=== PATIENT | female | born 1995 | race Caucasian/White ===

== ENCOUNTER 2016-08-15 00:24 | Emergency (ER) | payer BC ==
[~2016-08-15] VITALS: Ht 160 cm; Wt 50.2 kg
[2016-08-15 00:31] VITALS: TEMP 36.8; Ht 160 cm; Wt 50.2 kg
[2016-08-15 01:16] VITALS: BP 107/68; PULSE 79; O2SAT 97
--- NOTE | 2016-08-15 06:15 | EMERGENCY ROOM VISIT NOTE ---
ED Visit Note First contact with patient: 00:37 CHIEF COMPLAINT: Thumb injury HISTORY OF PRESENT ILLNESS: This 21 yo patient presents to the emergency department after injuring the left thumb when she accidentally dropped some plates on it tonight at home. The patient rates the pain as throbbing and 5/10. The range of motion of the thumb is intact. No numbness or tingling. No lacerations. No other injuries. The patient has not had previous injury to this thumb. The patient has taken nothing for the pain. REVIEW OF SYSTEMS: A 6 system review of systems was completed with positives and pertinent negatives in the HPI. ALLERGIES: None MEDICATIONS: None PMH: Appendectomy SOCIAL HISTORY: No drug use PHYSICAL EXAM: Vital Signs: Reviewed Nurse's notes, vital signs stable. GENERAL : Pleasant female, in no acute distress, but appears to be in pain, well- developed, well-nourished. MUSCULOSKELETAL: There is no deformity of the left thumb. Range of motion of the thumb is intact. The PP joint is maximally tender to palpation. There is no ligamentous instability. There is no laceration. Capillary refill less than 2 seconds. No tenderness of the remaining fingers or hand. Full range of motion of the wrist. + snuffbox tenderness. Radial pulse 2 +. NEURO: Alert and oriented to person, place, and time. Normal sensation to light and sharp touch. EMERGENCY DEPARTMENT COURSE: I examined the patient. An x-ray of the left wrist and thumb was reviewed by myself and my attending and showed no fracture. The thumb was immobiziled by thumb spica under my direction and the position was satisfactory. Neurovascular status rechecked and intact.Patient was advised to follow-up with hand specialist in a week if symptoms persist or here in the ER sooner for severe pain, numbness, tingling, worsening signs or symptoms or as needed. The patient was discharged home in good condition. DIAGNOSIS: Left thumb sprain DISCHARGE INSTRUCTIONS: As below Allergies Coded Allergies: No Known Allergies (Unverified , 08/15/16) Vital Signs Date Time Temp Pulse Resp B/P Pulse Ox O2 Delivery O2 Flow Rate FiO2 08/15/16 01:16 79 20 107/68 97 08/15/16 00:31 36.8 95 16 128/80 98 Room Air Departure Information Impression Primary Impression: Left thumb sprain Dispostion Home / Self-Care Condition GOOD Referrals Sea Connolly MD Forms WORK / SCHOOL INSTRUCTIONS, HOME CARE DOCUMENTATION FORM, IMPORTANT VISIT INFORMATION Patient Instructions My [facility] Additional Instructions Ibuprofen(Motrin, Advil) may be used for fever or pain. Use 600mg every six hours as needed. Take with food. Avoid using more than 2400mg in a 24 hour period. Do not use 2400mg per day for more than three consecutive days without physician direction. Prolonged inappropriate use can lead to stomach upset or ulcers. This medication can be taken if you need to drive, work, or perform activities which may be dangerous when taking narcotic pain medication. (AND/OR) Acetaminophen(Tylenol) may be used for fever or pain. Use 1000mg every six hours as needed. Avoid using more than 3000mg in a 24 hour period. This medication can be taken if you need to drive, work, or perform activities which may be dangerous when taking narcotic pain medication. Ice compresses for 20 minutes at a time four times daily for 2-3 days. Rest and elevate your injury. Wear splint for comfort. Do not have it so tight that you cannot feel your fingers. Continue current medications. Return to the ER immediately for any numbness, tingling, severe pain, extreme swelling in the extremity or as needed. Call Orthopedics in 5-7 days if symptoms persist to arrange follow up for your injury.
--- NOTE | 2016-08-15 06:49 | DIAGNOSTIC IMAGING REPORT ---
LEFT WRIST W/NAVICULAR MIN 3 VIEWS CLINICAL HISTORY: Left wrist pain status post injury. COMPARISON: None FINDINGS: Alignment of the left wrist is anatomic. Scaphoid is intact. No acute fracture is identified. IMPRESSION: No acute fracture or dislocation of the left wrist. Electronically signed by: Francois Baptiste M.D. 08/15/2016 6:48 AM Dictated Date/Time: 08/15/2016 6:46 AM
--- NOTE | 2016-08-15 06:50 | DIAGNOSTIC IMAGING REPORT ---
LEFT THUMB RADIOGRAPHS CLINICAL HISTORY: Left thumb pain following injury. COMPARISON: None FINDINGS: Alignment of the left thumb is anatomic. No acute fracture is identified. IMPRESSION: No acute fracture or dislocation of the left thumb. Electronically signed by: Francois Baptiste M.D. 08/15/2016 6:48 AM Dictated Date/Time: 08/15/2016 6:48 AM
== END 2016-08-15 01:18 | disposition home or self-care (01) ==
LOC: C.EDB 00:26 → C.EDC 01:18
DX: S63.602A Unspecified sprain of left thumb, initial encounter (principal); W22.8XXA Striking against or struck by other objects, initial encounter